=== PATIENT | male | born 1970 | race Caucasian/White ===

== ENCOUNTER 2020-04-06 10:06 | Emergency (ER) | payer OTHER, SELFPAY ==
[~2020-04-06] VITALS: Ht 185.4 cm; Wt 80.6 kg
[2020-04-06] MEDS ORDERED: IBUPROFEN (10:12)
[2020-04-06] MEDS ORDERED: AMPICILLIN SOD/SULBACTAM SOD 3 GM in D5W MINI-BAG PLUS 100 ML IV ONE (11:15)
[2020-04-06] MEDS ORDERED: KETOROLAC 30 MG/ML 1ML VIAL IV ONE (11:15)
[2020-04-06 11:49] LABS: BASO % 0.3 % (0.0-1.0); EOS # 0.1 10^3/uL (0.0-0.5); EOS % 0.4 % (0.0-3.0); HEMATOCRIT 43.3 % (42.0-52.0); HEMOGLOBIN 14.4 g/dl (13.5-17.5); LYMPH % 15.1 % (24.0-44.0); MEAN CORPUSCULAR HEMOGLOBIN 31.9 pg (27.0-33.0); MEAN CORPUSCULAR HGB CONC 33.3 g/dl (32.0-36.5); MONO # 0.9 10^3/uL (0.0-0.8); MONO % 6.6 % (0.0-5.0); NEUTROPHILS # 10.4 10^3/uL (1.5-8.5); NEUTROPHILS % 76.9 % (36.0-66.0); PLATELET COUNT, AUTOMATED 207 10^3/uL (150-450); RED BLOOD COUNT 4.51 10^6/uL (4.30-6.10); WHITE BLOOD COUNT 13.5 10^3/uL (4.0-10.0)
[2020-04-06] MEDS ORDERED: AUGM875T28 PO (11:54)
[2020-04-06] MEDS ORDERED: IBUP-1022 PO (11:54)
[2020-04-06 12:05] LABS: BLOOD UREA NITROGEN 19 MG/DL (7-18); CALCIUM LEVEL 8.9 MG/DL (8.5-10.1); CARBON DIOXIDE LEVEL 28 MEQ/L (21-32); CHLORIDE LEVEL 109 MEQ/L (98-107); CREATININE FOR GFR 0.88 MG/DL (0.70-1.30); GLOMERULAR FILTRATION RATE > 60.0 (>60); GLUCOSE, FASTING 91 MG/DL (70-100); POTASSIUM SERUM 4.3 MEQ/L (3.5-5.1); SODIUM LEVEL 143 MEQ/L (136-145)
[2020-04-06 12:29] VITALS: BP 131/70
== END 2020-04-06 12:31 | disposition home or self-care (01) ==
LOC: M ED 10:06
DX: K04.7 Periapical abscess without sinus (principal); F17.200 Nicotine dependence, unspecified, uncomplicated
CPT/HCPCS: 80048; 85025; 96361; 96365; 99283; J1885